=== PATIENT | female | born 1940 | race Caucasian/White ===

== ENCOUNTER → 2022-05-24 | Outpatient (CLI) | payer MEDICARE ==
[~2022-05-24] MED LIST: IOHEXOL 350 MG/ML 100ML INFUS..BTL IV ONE; METOPROLOL TARTRATE 1 MG/ML 5ML VIAL IV ONE
== END | disposition home or self-care (01) ==
LOC: RAH 10:25
PROVIDERS: ATTEND Internal Medicine Cardiovascular Disease
DX: R07.9 Chest pain, unspecified (principal); J84.10 Pulmonary fibrosis, unspecified; M47.815 Spondylosis without myelopathy or radiculopathy, thoracolumbar region
CPT/HCPCS: 75574; J3490 ×2; Q9967 ×3

== ENCOUNTER → 2022-07-02 | Outpatient (CLI) | payer MEDICARE | END | disposition home or self-care (01) | LOC: SHCH 13:44 | PROVIDERS: ATTEND Internal Medicine Cardiovascular Disease | DX: I87.2 Venous insufficiency (chronic) (peripheral) (principal); Z98.890 Other specified postprocedural states | CPT/HCPCS: 93971 ==

== ENCOUNTER → 2022-07-16 | Outpatient (CLI) | payer MEDICARE | END | disposition home or self-care (01) | LOC: SHCH 12:38 | PROVIDERS: ATTEND Internal Medicine Cardiovascular Disease | DX: I87.2 Venous insufficiency (chronic) (peripheral) (principal); Z98.890 Other specified postprocedural states | CPT/HCPCS: 93971 ==

== ENCOUNTER 2022-09-17 06:26 | Day surgery (SDC) | payer MEDICARE ==
[2022-09-14 09:31] VITALS: BP 137/57
[2022-09-14 09:54] LABS: BASOPHILS % (AUTO) 0.8 % (0.0-5.0); EOSINOPHILS % (AUTO) 3.2 % (0.0-8.0); HEMATOCRIT 40.6 % (36-48); LYMPHOCYTES % (AUTO) 25.3 % (21.0-51.0); MEAN CORPUSCULAR HEMOGLOBIN 30.7 pg (27.0-33.0); MEAN CORPUSCULAR VOLUME 95.8 fL (79-99); MONOCYTES % (AUTO) 9.5 % (3.0-13.0); PLATELET COUNT (AUTO) 257 K/uL (130-400); RED BLOOD CELL COUNT(AUTO) 4.24 MIL/uL (4.00-5.50)
[2022-09-14 10:09] LABS: CREATININE 0.8 mg/dL (0.5-1.5); INR 0.93 (0.85-1.15); POTASSIUM 4.9 mmol/L (3.5-5.1); PROTHROMBIN TIME 10.4 SEC (9.6-11.6)
[2022-09-14 10:10] LABS: PARTIAL THROMBOPLASTIN TIME 27.6 SEC (26.3-35.5)
[~2022-09-17] VITALS: Ht 167.6 cm; Wt 99.8 kg
[2022-09-17] VITALS (9 sets, daily range): BP systolic 135–156; BP diastolic 65–86
[~2022-09-17 06:26] MED LIST changes: +AEC81 PO; +CLOP75TA32 PO; -IOHEXOL 350 MG/ML 100ML INFUS..BTL IV ONE; +LEVO50CA4 PO; +LISI40TA9 PO; +METO-408 PO; -METOPROLOL TARTRATE 1 MG/ML 5ML VIAL IV ONE
[2022-09-17] MEDS ORDERED: 0.9%NACL 1000ML 1,000 ML IV ONE (07:07)
[2022-09-17] MEDS ORDERED: IOHEXOL-350 75 ML VIAL IV ONE (08:28)
[2022-09-17] MEDS ORDERED: MEPERIDINE-PF 25 MG/ML SYG ONE ×2 (08:28→08:59)
[2022-09-17] MEDS ORDERED: SODIUM BICARB 50MEQ 50ML VIAL 50 ML ONE (08:28)
[2022-09-17] MEDS ORDERED: MIDAZOLAM HCL 1 MG/ML 2ML VIAL ONE ×2 (08:28→08:59)
[2022-09-17] MEDS ORDERED: NICARDIPINE 25MG INJ IV ONE (08:28)
[2022-09-17] MEDS ORDERED: HEPARIN 10,000 UNIT/10ML (1,000 UNIT/ML) VIAL ONE (08:28)
[2022-09-17] MEDS ORDERED: LIDOCAINE HCL 400MG/20ML VIAL ONE (08:28)
[2022-09-17] MEDS ORDERED: NITROGLYCERIN 50MG VIAL ONE (08:28)
[2022-09-17] MEDS ORDERED: 0.9%NACL 1000ML 1,000 ML IV SCH (10:00)
[2022-09-17] MEDS ORDERED: ACETAMINOPHEN 500 MG TABLET ONE (11:19)
== END 2022-09-17 13:32 | disposition home or self-care (01) ==
LOC: DAH 06:26
PROVIDERS: ATTEND Internal Medicine Cardiovascular Disease
DX: I25.10 Atherosclerotic heart disease of native coronary artery without angina pectoris (principal); I10 Essential (primary) hypertension; E78.5 Hyperlipidemia, unspecified; E03.9 Hypothyroidism, unspecified; Z79.01 Long term (current) use of anticoagulants; Z88.2 Allergy status to sulfonamides; Z98.890 Other specified postprocedural states; Z90.710 Acquired absence of both cervix and uterus; Z79.899 Other long term (current) drug therapy; Z87.891 Personal history of nicotine dependence; Z72.89 Other problems related to lifestyle; Z90.49 Acquired absence of other specified parts of digestive tract; Z98.61 Coronary angioplasty status
CPT/HCPCS: 80048; 85025; 85610; 85730; 36415; 71045; 93005; 93458; C1769; C1887; C1894; A4649; J3490 ×4; J7030; J1644 ×2; J2250 ×2; J2175 ×2; Q9967; A4215; A4222; A4221; A4663; A4216; A4606; A4223 ×3; 99156; 99157